=== PATIENT | male | born 1990 | race Caucasian/White ===

== ENCOUNTER 2017-02-13 12:54 | Emergency (ER) | payer OTHER ==
[2017-02-13] MEDS ORDERED: BUPIVACAINE 0.5% PF 30 ML VIAL SUBQ STA (13:02)
[2017-02-13] MEDS ORDERED: TETANUS/DIPHTHERIA/PERTUSSIS 0.5 ML SYRINGE IM ONE (13:51)
--- NOTE | 2017-02-13 13:52 | ED Physician Documentation ---
PD HPI UPPER EXT INJURY - Stated complaint Stated Complaint: HAND LAC - Chief complaint Chief Complaint: Ext Problem - History obtained from History obtained from: Patient - History of Present Illness Location: Left, Finger (4th digit) Type of injury: Laceration (skill saw at work today) Where injury occurred: Work Timing - onset: How many minutes ago (15) Timing - duration: Minutes (15) Timing - details: Abrupt onset Pain level max: 10 Pain level now: 10 Improved by: Rest Worsened by: Moving Associated symptoms: No: Weakness, Numbness, Tingling, Swelling Contributing factors: No: Anticoagulated Recently seen: Not recently seen - Additonal information Additional information: pt is right handed Review of Systems Musculoskeletal: denies: Neck pain, Back pain Neurologic: denies: Focal weakness, Numbness, Headache PD PAST MEDICAL HISTORY - Past Medical History Past Medical History: No - Present Medications Home Medications: Ambulatory Orders Medication Instructions Recorded Confirmed Cephalexin [Keflex] 500 mg PO Q6H #28 capsule 02/13/17 Hydrocodone/Acetaminophen 1 - 2 each PO Q6H PRN #14 tablet 02/13/17 [Hydrocodon-Acetaminophen 5-325] - Allergies Allergies/Adverse Reactions: Allergies Allergy/AdvReac Type Severity Reaction Status Date / Time No Known Drug Allergies Allergy Verified 02/13/17 13:11 - Living Situation Living Arrangement: reports: At home - Social History Does the pt smoke?: Yes Smoking Status: Current every day smoker Does the pt drink ETOH?: Yes Does the pt have substance abuse?: No - Immunizations Immunizations: TDAP >10years/unknown PD ED PE NORMAL - Vitals Vital signs reviewed: Yes - General General: Alert and oriented X 3, Well developed/nourished, Other (appears in pain) - HEENT HEENT: Moist mucous membranes - Derm Derm: Warm and dry - Neuro Neuro: Alert and oriented X 3 - Psych Psych: Other (in pain) PD ED PE EXPANDED - Extremities FLORENTIN UE/Hands Visual: 1 - laceration (1cm, deep. NVI.) Results - Vitals Vitals: Vital Signs - 24 hr 02/13/17 02/13/17 13:08 15:13 Temperature 36.2 C L 36.5 C Heart Rate 68 Respiratory 16 Rate Blood Pressure 125/81 H O2 Saturation 98 Oxygen O2 Source Room air - Rads (name of study) L 4th digit xray Radiology: Prelim report reviewed, EMP read contemporaneously, See rad report ( 2 x 3 mm cortical bone defect at the laceration site (distal metaphysis fourth distal phalanx) with multiple minute/pulverized bone fragments adjacent to such. ) Procedures - Laceration (location) L 4th digit Length in cm: 1 Wound type: Linear, Stellate, Irregular, Into subcut fat, Into muscle, Contaminated Neurovascular status: Sensory intact, Motor intact, Vascular intact Tendon involvement: Tendon intact Anesthesia: Marcaine 0.5% (digital block) Wound Preparation: Irrigated copiously NS (500ml), Wound explored, To the base. No: FB identified, FB removed Skin layer closure: Nylon, Interrupted, Size #-0 - enter number (4), Sutures - enter # (2) Other: Patient tolerated well, No complications, Neurovascular intact, Dressing applied (tube gauze, abx ointment and finger cage), Tetanus booster given (tdap) Complexity: Simple PD MEDICAL DECISION MAKING - ED course Complexity details: reviewed results, re-evaluated patient, considered differential, d/w patient, d/w instructional systems design consultant ED course: Patient is a 26-year-old male who presents to the emergency department after cutting the left fourth digit, volar aspect over the pad with a skill saw at work today. He is missing approximately 1/8 inch of the tissue on the distal tip of the finger. This did hit bone. He was given a gram of Ancef IM. Will start on oral antibiotics. Tdap given. Discussed the case with Dr. Ruffin, orthopedics on-call who recommends follow-up in the clinic, loosely closed with 2 sutures and protect the finger. Warnings of infection and instructions on wound care given at bedside. Also counseled on how to minimize scarring. Patient counseled regarding signs and symptoms for which I believe and urgent re -evaluation would be necessary. Patient with good understanding of and agreement to plan and is comfortable going home at this time This document was made in part using voice recognition software. While efforts are made to proofread this document, sound alike and grammatical errors may occur. Departure - Departure Disposition: 01 Home, Self Care Clinical Impression: Finger laceration Qualifiers: Encounter type: initial encounter Finger: ring finger Damage to nail status: without damage Foreign body presence: without foreign body Laterality: left Qualified Code(s): S61.215A - Laceration without foreign body of left ring finger without damage to nail, initial encounter Condition: Good Instructions: ED Laceration Hand Follow-Up: [facility] [Provider Group] - Within 1 week (call for an appointment on Thursday. I spoke with Dr. Ruffin today. ) Prescriptions: Cephalexin [Keflex] 500 mg PO Q6H #28 capsule Hydrocodone/Acetaminophen [Hydrocodon-Acetaminophen 5-325] 1 - 2 each PO Q6H PRN #14 tablet PRN Reason: pain Comments: Keep the wound clean. Wear the finger cage to help protect the wound. Return if you worsen. Make sure to follow up closely with orthopedics. Do not drink alcohol or drive while on narcotic pain medicine. Note that many narcotic pain relievers also contain tylenol/acetaminophen. Please ensure that your total dose of acetaminophen from all sources does not exceed 3 grams (3000mg) per day. You may constipated on this medication, take a stool softener such as "Colace" twice a day while you are on it. Also recommend a [id number] laxative such as senna or MiraLAX any day that you do not have a bowel movement. If you received narcotic pain medication in the emergency department, do not drive or operate machinery for the next 24 hours. Discharge Date/Time: 02/13/17 15:28
--- NOTE | 2017-02-13 14:39 | XRAY Preliminary Report ---
Exam: XR FINGER(S) LT IMPRESSION: 2 x 3 mm cortical bone defect at the laceration site (distal metaphysis fourth distal pha lanx) with multiple minute/pulverized bone fragments adjacent to such. [facility] SITE ID: [id number]
--- NOTE | 2017-02-13 14:45 | XRAY Report ---
EXAM: LEFT FOURTH DIGIT RADIOGRAPHY EXAM DATE: 02/13/2017 02:04 PM. CLINICAL HISTORY: Left fourth digit laceration. COMPARISON: None. TECHNIQUE: 3 views. FINDINGS: Bones: Acute 2 x 3 mm triangular-shaped divot involving the lateral anterior aspect distal metaphysis fourth distal phalanx. The bone fragment consists of multiple 1 and 2 mm calcifications in the adjac ent soft tissues, exactly in the area of the laceration. Approximately 75% diameter of the volume of the bone is intact at this level. Joints: Normal. No subluxations. Soft Tissues: Marked edema with deep laceration lateral anterior aspect tip of the fourth finger. IMPRESSION: 2 x 3 mm cortical bone defect at the laceration site (distal metaphysis fourth distal pha lanx) with multiple minute/pulverized bone fragments adjacent to such. JIM Referring Provider Line: [phone] SITE ID: [id number]
[2017-02-13] MEDS ORDERED: ceFAZolin 1 GM VIAL IM STA (14:48)
[2017-02-13] MEDS ORDERED: WATER FOR INJECTION,STERILE 10 ML ONE (15:02)
[2017-02-13 15:14] VITALS: BP 125/81
== END 2017-02-13 15:28 | disposition home or self-care (01) ==
LOC: ED 12:54
DX: S62.635B Displaced fracture of distal phalanx of left ring finger, initial encounter for open fracture (principal); W31.2XXA Contact with powered woodworking and forming machines, initial encounter; Y92.89 Other specified places as the place of occurrence of the external cause; Y99.0 Civilian activity done for income or pay; Z23 Encounter for immunization; F17.200 Nicotine dependence, unspecified, uncomplicated
CPT/HCPCS: 1040M; 12001; 73140; 90471; 90715; 96372; 99283